=== PATIENT | female | born 1965 | race Caucasian/White ===

== ENCOUNTER 2018-10-24 07:00 | Day surgery (SDC) | payer OTHER ==
[~2018-10-24] VITALS: Ht 160 cm; Wt 68.9 kg
[~2018-10-24 07:00] MED LIST: SODIUM CHLORIDE 0.9% 1,000 ML IV ONE
[2018-10-24] MEDS ORDERED: FLUT16H NASAL (07:17)
[2018-10-24] MEDS ORDERED: FERR-89 PO (07:26)
[2018-10-24] MEDS ORDERED: PRED10 PO (07:26)
[2018-10-24] MEDS ORDERED: SUMA100T PO (07:26)
[2018-10-24] MEDS ORDERED: TOPI100T37 PO (07:26)
[2018-10-24] MEDS ORDERED: BUPR-93 PO (07:26)
[2018-10-24] MEDS ORDERED: OMEP20 PO (07:26)
[2018-10-24] MEDS ORDERED: MIDO10TA PO (07:26)
[2018-10-24] MEDS ORDERED: BECL10.62 IH (07:26)
[2018-10-24] MEDS ORDERED: PROM25S PR (07:26)
[2018-10-24] MEDS ORDERED: LEVO500 PO (07:26)
[2018-10-24] MEDS ORDERED: FLUD.1 PO (07:26)
[2018-10-24] MEDS ORDERED: ESCI20TA PO (07:26)
[2018-10-24] MEDS ORDERED: GABA-533 PO (07:26)
[2018-10-24] MEDS ORDERED: FentaNYL CITRATE-PF 100 MCG/2 ML VIAL ONE (08:08)
[2018-10-24] MEDS ORDERED: MIDAZOLAM HCL 2 MG/2 ML VIAL ONE (08:08)
[2018-10-24] MEDS ORDERED: MethylPREDNISolone SOD SUCC 125 MG/2 ML VIAL ONE (08:56)
[2018-10-24] MEDS ORDERED: MethylPREDNISolone SOD SUCC 125 MG/2 ML VIAL IVP ONE (09:00)
[2018-10-24] MEDS ORDERED: LIDOCAINE 4% 50 ML SOLUTION ONE (17:49)
[2018-10-24] MEDS ORDERED: BENZOCAINE 20% 50 MCG/SPRAY 57 GM ONE (17:49)
[2018-10-24] MEDS ORDERED: LIDOCAINE 2% 30 ML JELLY ONE (17:49)
[2018-10-24] MEDS ORDERED: ALBUTEROL SULFATE 2.5 MG/0.5 ML NEB SOLUTION NEB ONE (17:49)
[2018-10-24] MEDS ORDERED: OXYGEN THERAPY IH SCH (20:00)
== END 2018-10-24 11:02 | disposition home or self-care (01) ==
LOC: SURGERY 07:00
PROVIDERS: ATTEND Internal Medicine Critical Care Medicine
DX: J38.4 Edema of larynx (principal); B37.0 Candidal stomatitis; J45.909 Unspecified asthma, uncomplicated; J98.8 Other specified respiratory disorders; J39.8 Other specified diseases of upper respiratory tract; I10 Essential (primary) hypertension; M19.90 Unspecified osteoarthritis, unspecified site; Z88.2 Allergy status to sulfonamides; Z79.899 Other long term (current) drug therapy; Z90.49 Acquired absence of other specified parts of digestive tract; Z98.890 Other specified postprocedural states
CPT/HCPCS: 31623; 31624; 71045; 87015; 87070; 87101; 87205; 87206; 87220; 88108; 88312; J2250; J2930; J3010; J7030